=== PATIENT | male | born 1945 | race Caucasian/White ===

== ENCOUNTER 2019-07-10 11:21 | Outpatient (CLI) | payer OTHER, MEDICARE ==
--- NOTE | 2019-07-10 16:27 | XRAY Report ---
Reason: RENAL CALCULUS Procedure Date: 07/10/2019 Accession Number: [id number] / [id number] Procedure: XRN - Abdomen 1 View X-Ray CPT Code: 55726 Final Report FULL RESULT: EXAM: ABDOMEN RADIOGRAPHY EXAM DATE: 07/10/2019 11:36 AM. CLINICAL HISTORY: Renal calculus. COMPARISON: 02/20/2015 6:46 AM ABDOMEN/PELVIS W/O 11/15/2015 10:29 AM. TECHNIQUE: 1 view. FINDINGS: Bowel Gas Pattern: Within normal limits. No dilated loops. Other: There is a 0.6 cm calcification projecting over the left mid abdomen which potentially represents a renal etiology. A 1.4 cm calcification in the left upper quadrant projecting near the stomach, a 2.2 cm calcification projecting in the paraspinal left mid abdomen at the left L3 transverse body region and a 2.6 cm region of calcification projecting over the left iliac crest all demonstrate morphology less consistent with renal calculus. CT correlation demonstrates peritoneal calcifications to correspond to these findings. IMPRESSION: Potential 6 mm left renal calculus. RADIA
== END 2019-07-10 11:22 | disposition home or self-care (01) ==
LOC: DI.N 11:21
PROVIDERS: ATTEND Urology
DX: N20.0 Calculus of kidney (principal)
CPT/HCPCS: 74018

== ENCOUNTER 2019-09-05 08:30 | Outpatient (CLI) | payer OTHER, MEDICARE ==
--- NOTE | 2019-09-05 09:07 | XRAY Report ---
Reason: KIDNEY STONES Procedure Date: 09/05/2019 Accession Number: [id number] / [id number] Procedure: XRN - Abdomen 1 View X-Ray CPT Code: 61383 Final Report FULL RESULT: EXAM: ABDOMEN RADIOGRAPHY EXAM DATE: 09/05/2019 08:52 AM. CLINICAL HISTORY: KIDNEY STONES. COMPARISON: ABDOMEN 1 VIEW 07/10/2019 11:45 AM ABDOMEN/PELVIS W/O 11/15/2015 10:29 AM. TECHNIQUE: 1 view. FINDINGS: Bowel Gas Pattern: Within normal limits. No dilated loops. Other: Calcifications over the left kidney consistent with nephrolithiasis, with a calcification over the inferior pole measuring 6 mm, unchanged. Additional calcifications over the left abdomen appear to be in the mesentery on cross sectional imaging. Calcifications with lucent centers over the pelvis, consistent with phleboliths. IMPRESSION: 1. Stable left nephrolithiasis. 2. No definite ureterolithiasis or bladder calculi by plain radiography. If patient is symptomatic, CT renal stone would be a better evaluation. RADIA
== END 2019-09-05 08:31 | disposition home or self-care (01) ==
LOC: DI.N 08:30
PROVIDERS: ATTEND Urology
DX: N20.0 Calculus of kidney (principal)
CPT/HCPCS: 74018

== ENCOUNTER 2021-12-05 10:07 | Outpatient (CLI) | payer MEDICARE, OTHER ==
--- NOTE | 2021-12-05 12:32 | XRAY Report ---
PROCEDURE: Abdomen 1 View X-Ray INDICATIONS: KIDNEY STONES TECHNIQUE: One view of the abdomen acquired. COMPARISON: CT [facility] 11/07/2015. One view abdomen x-ray 09/05/2019. FINDINGS: Surgical changes and devices: None. Bowel: Bowel gas pattern is normal. Soft tissues: 8 mm 5 mm collimated densities. Over the left renal shadow that inferior renal stones. 2 cm coarse calcination projects over the lower left abdomen which corresponds to a calcified lymph n ode by prior CT scan. There is a new 1.8 cm calcification in the medial right abdomen which may also represent a calcified node, however large right ureteral stone is not completely excluded by plain fr om radiograph. Visualized solid organ contours appear normal in size. Bones: No suspicious bony lesions. IMPRESSION: 1. Left nephrolithiasis. 2. Stable left lower quadrant calcified lymph node. 3. New 1.8 cm calcification in the medial right abdomen which may represent calcified lymph node vers us ureteral stone. Recommend correlation with clinical findings. Reviewed by: Liliana Hoover MD, PhD on 12/05/2021 12:31 PM PDT Approved by: Liliana Hoover MD, PhD on 12/05/2021 12:31 PM PDT Station ID: [id number]
== END 2021-12-05 10:08 | disposition home or self-care (01) ==
LOC: DI.N 10:07
PROVIDERS: ATTEND Urology
DX: N20.0 Calculus of kidney (principal); I89.8 Other specified noninfective disorders of lymphatic vessels and lymph nodes

== ENCOUNTER 2022-11-28 09:32 | Outpatient (CLI) | payer OTHER ==
--- NOTE | 2022-11-28 17:26 | XRAY Report ---
PROCEDURE: Abdomen 1 View X-Ray INDICATIONS: NEPHROLITHIASIS TECHNIQUE: One view of the abdomen acquired. COMPARISON: 12/05/[address] of abdomen and pelvis dated 11/15/2015. FINDINGS: Surgical changes and devices: None. Bowel: Bowel gas pattern is normal. Soft tissues: Multiple calcifications are again seen projecting in left renal fossa measures up to 1. 9 cm in size unchanged from previous study in 2021. Previously noted 1.8 cm calcification projecting in lower pole of right kidney is also unchanged. Numerous phleboliths are noted in lower pelvis. Visu alized solid organ contours appear normal in size. Bones: No suspicious bony lesions. IMPRESSION: Stable appearing bilateral nephrolithiasis. Reviewed by: Ishan Sharp MD on 11/28/2022 5:25 PM PDT Approved by: Ishan Sharp MD on 11/28/2022 5:25 PM PDT Station ID: [id number]
== END 2022-11-28 09:33 | disposition home or self-care (01) ==
LOC: DI 09:32
PROVIDERS: ATTEND Urology
DX: N20.0 Calculus of kidney (principal)

== ENCOUNTER 2024-02-09 06:34 | Outpatient (CLI) | payer OTHER | END 2024-02-09 23:59 | disposition E | LOC: EMS 06:34 ==